=== PATIENT | male | born 1980 | race Caucasian/White ===

== ENCOUNTER 2017-06-26 15:49 | Inpatient (IN) | payer MEDICAID, SELFPAY ==
[2017-06-26 15:50] VITALS: BP 133/80; PULSE 97; RESP 18; TEMP 37.1; O2SAT 97; BMI 19.4
--- NOTE | 2017-06-26 16:14 | ED.VISSUMM ---
- ER Visit Summary Date of Service: 06/26/17 Chief Complaint: [Swelling to left forearm and clearance for admission to [facility]] History of Present Illness: The patient is a 36 M [was evaluated by [facility] staff and meets criteria for admission to detox from heroin. Patient was brought to the emergency department when it was noted that he had a soft tissue swelling to the left antecubital area of his forearm. Patient states he noticed the redness and swelling that started about 2-3 days ago. Patient denies any fevers. Patient has had similar lesions in the past that resolved on her own.] Physical Examination: [HEENT-PERRLA, EOMI. Cranial nerves II through XII grossly intact. TMs clear. Mucous membranes moist. No adenopathy. Cardiovascular-regular rate and rhythm without murmur or ectopy Lungs-clear to auscultation, chest wall stable without crepitus or subcu emphysema Abdomen-normoactive bowel sounds, soft, nontender, no rebound or rigidity, no peritoneal signs. Extremities-intact ?4, normal range of motion, normal pulses, atraumatic]. Left forearm-patient has a 3 cm soft tissue swelling to the medial aspect of the antecubital region. The area slightly tender to palpation and slightly firm. No significant fluctuance noted. There is some surrounding erythema. Patient neurovascular intact distally. Test Results: [None indicated] Emergency Department Course and Treatment: [Patient was offered incision and drainage of suspected early abscess which patient agreed. Wound sterilely draped and prepped. Wound cleansed with Betadine. Wound anesthetized with 1% lidocaine total of 1 cc. Using an 11 blade a 1.5 cm incision was made. Only small amount of blood returned and no significant purulence. I used curved hemostats to undermine the soft tissues and again no purulent return. Clean dressing was applied.] Treatment Plan: [Patient was started on Keflex and Bactrim] Disposition: [Discharged home in stable condition. Patient will actually be admitted to [facility] for detox.] Impression: [Left forearm soft tissue abscess with cellulitis] This note was generated with [employer] dictation software. It may contain incorrect words, spelling, and punctuation that were not noted in review of the chart prior to signing ED Disposition - Plan for ED Patient: Chief Complaint: Subst Abuse Referrals: Care Physician,No Primary [Primary Care Provider] -
--- NOTE | 2017-06-26 16:17 | ED.DCSUM_ITS ---
- ER Visit Summary Date of Service: 06/26/17 Chief Complaint: [Swelling to left forearm and clearance for admission to [facility]] History of Present Illness: The patient is a 36 M [was evaluated by [facility] staff and meets criteria for admission to detox from heroin. Patient was brought to the emergency department when it was noted that he had a soft tissue swelling to the left antecubital area of his forearm. Patient states he noticed the redness and swelling that started about 2-3 days ago. Patient denies any fevers. Patient has had similar lesions in the past that resolved on her own.] Physical Examination: [HEENT-PERRLA, EOMI. Cranial nerves II through XII grossly intact. TMs clear. Mucous membranes moist. No adenopathy. Cardiovascular-regular rate and rhythm without murmur or ectopy Lungs-clear to auscultation, chest wall stable without crepitus or subcu emphysema Abdomen-normoactive bowel sounds, soft, nontender, no rebound or rigidity, no peritoneal signs. Extremities-intact ?4, normal range of motion, normal pulses, atraumatic]. Left forearm-patient has a 3 cm soft tissue swelling to the medial aspect of the antecubital region. The area slightly tender to palpation and slightly firm. No significant fluctuance noted. There is some surrounding erythema. Patient neurovascular intact distally. Test Results: [None indicated] Emergency Department Course and Treatment: [Patient was offered incision and drainage of suspected early abscess which patient agreed. Wound sterilely draped and prepped. Wound cleansed with Betadine. Wound anesthetized with 1% lidocaine total of 1 cc. Using an 11 blade a 1.5 cm incision was made. Only small amount of blood returned and no significant purulence. I used curved hemostats to undermine the soft tissues and again no purulent return. Clean dressing was applied.] Treatment Plan: [Patient was started on Keflex and Bactrim] Disposition: [Discharged home in stable condition. Patient will actually be admitted to [facility] for detox.] Impression: [Left forearm soft tissue abscess with cellulitis] This note was generated with [employer] dictation software. It may contain incorrect words, spelling, and punctuation that were not noted in review of the chart prior to signing ED Disposition - Plan for ED Patient: Chief Complaint: Subst Abuse Referrals: Care Physician,No Primary [Primary Care Provider] -
--- NOTE | 2017-06-26 16:17 | ED.DEP ---
ED Disposition - Plan for ED Patient: Chief Complaint: Subst Abuse Instructions: ED Narcotic Abuse, ED Abscess IandD Prescriptions: Cephalexin [Keflex] 500 mg PO Q6 #40 cap Smz/Tmp Ds [Bactrim Ds] 2 tab PO BID #40 tab Referrals: Care Physician,No Primary [Primary Care Provider] - Stephanie Noriega DO [STAFF PHYSICIAN] - 5-7 Days
[2017-06-26 16:37] VITALS: BMI 19.5
[2017-06-26] MEDS: Smz/Tmp Ds Tablet 2 TABLET PO ×2 (16:47→22:50)
[2017-06-26] MEDS: Cephalexin 250 MG Capsule 500 MG PO (16:47)
--- NOTE | 2017-06-26 17:03 | HP.PCM_ITS ---
Problem List (1) ETOH abuse Status: Chronic (2) Cellulitis of left upper extremity Status: Acute (3) Acute opioid withdrawal Status: Acute (4) Hep C w/o coma, chronic Status: Chronic (5) Heroin dependence Status: Chronic (6) Tobacco dependence Status: Chronic History of Present Illness Date of Admission: 06/26/17 Chief Complaint: Acute Opiate Withdrawal, EtOH Abuse, LUE cellulitis The patient is a 36 y/o M w/ PMHx: Chronic Hepatitis C, IVDA w/ Heroine (1/2-1 gm daily average, last 06/26/17 2 AM), Crack Cocaine Usage (Smoke q day, last ~ 3 days prior), Tobacco Use (1 ppd), Occasional Cannabis Usage, EtOH Abuse (At least 3-6 drinks per day, sometimes beer, sometimes liquor, i.e. whiskey he notes as example) who presents to the [facility] on 06/26/17 w/ noted opiate and EtOH withdrawal onset starting 06/26/17 late AM following last dose heroine 2 AM, last EtOH evening prior with abdominal pain/cramping, generalized body aches and pains, rhinorrhea, piloerection, fatigue, restless leg, sweating, yawning, tremors. Patient interested in attaining clean status. He notes having been through the program prior. Upon initial presentation to [facility] patient with noted LUE antecubital fossa erythema which he noted started on day of presentation therefore he was initially transitioned to the ED for evaluation. I+D attempted given appearance but only indurated with no drainage despite attempt. Patient placed on bactrim and keflex and Hospitalist contacted for [facility] admission. Past Medical History Past Medical History (Chronic Problems): Chronic Problems ETOH abuse (Chronic) Hep C w/o coma, chronic (Chronic) Tobacco dependence (Chronic) Heroin dependence (Chronic) Allergies No Known Allergies Allergy (Verified 06/26/17 15:54) Home Medications: Ambulatory Orders Medication Instructions Recorded Cephalexin [Keflex] 500 mg PO Q6 #40 cap 06/26/17 Smz/Tmp Ds [Bactrim Ds] 2 tab PO BID #40 tab 06/26/17 Surgical History: no surgical history Psychiatric History: No pertinent psych hx Lives: Roommate - Notes his roommate does not use drugs. Smoking Status: Current every day smoker - 1 ppd. Tobacco Use: Cigarettes Alcohol: Heavy - At least 3-6 drinks per day, sometimes beer, sometimes liquor, i.e. whiskey he notes as example. Drugs: Cocaine - Crack Cocaine Usage (Smoke q day, last ~ 3 days prior), Heroin - 1/2-1 gm daily average, last 06/26/17 2 AM. - *Family History Maternal History Items: No pertinent history Paternal History Items: No pertinent history Review of Systems Constitutional: Reports: Anorexia, Chills, Malaise, Weakness, Fatigue. Denies: Fever, Weight Change HEENT: Reports: Head Aches, Nasal Congestion, Post Nasal Drip, Sinus Congestion , Sinus Drainage Cardiovascular: Denies: Chest Pain, Palpitations Respiratory: Denies: Cough, Shortness of breath at rest, Sputum production Gastrointestinal: Reports: Abdominal Pain, Nausea. Denies: Vomiting Genitourinary: Denies: Dysuria Musculoskeletal: Reports: Joint Pain, Muscle pain. Denies: Joint Tenderness Skin: Reports: Skin Changes, Wounds. Denies: Rash Neurological: Denies: Numbness, Tingling, Focal weakness Psychiatric: Denies: Anxiety, Depression, Homicidal Ideations, Suicidal Ideations Hematologic/ Lymphatic: Denies: Easy Bruising, Easy Bleeding VTE Information - Inpt Only VTE Present on Admission: No VTE Mechan Device Prophylaxis: Knee High JOHNNIE Hose VTE Pharm Prophylaxis ordered?: Yes Patient Problems: Active and Suspected Problems Cellulitis of left upper extremity (Acute) Subjective: Seated upright in the ED bed, notes ongoing withdrawal sxs, notes no marked pain to LUE s/p I+D attempt. Objective: Physical Examination: General: awake, alert, oriented x 3 and cooperative, seated upright in the bed in no apparent distress, mildly anxious. Skin: normal color, turgor, no icterus, cyanosis except LUE w/ s/p I+D incision , no drainage, mildly indurated, 2-3 cm circular region around incision erythematous. HEENT: AT/NC, EOMI, PERRLA, dry MM, no carotid bruits or JVD noted, rhinorrhea noted. Lungs: CTA bilaterally, moderate effort, moderate decrease BL bases, no rales, ronchi or wheezing. Heart: Mildly tachycardic with regular rhythm; no gallop, rub audible. Abdomen: soft, generalized mild discomfort to palpation,NTTP, ND, hyperactive BS , + HM. Extremities: no cyanosis, clubbing, see skin. Neurological: patient awake, alert, oriented x 3; cognitive function intact; pupils equally reactive to light and accomodation; cranial nerves II-XII grossly normal, moving all 4 extremities, no focal deficits, strength mildly to moderately globally decreased secondary to acute presentation. Psychiatric: affect appears mildly anxious, no acute evidence of depressive feelings. - Physical Exam Vital Signs Temp Pulse Resp BP Pulse Ox 98.7 F 97 18 133/80 H 97 06/26/17 15:50 06/26/17 15:50 06/26/17 15:50 06/26/17 15:50 06/26/17 15:50 Oxygen Delivery Method Room Air Weight: 143 lb 8.335 oz Body Mass Index (BMI) 19.4 Assessment/Plan Active and Suspected Problems Cellulitis of left upper extremity (Acute) The patient is a 36 y/o M w/ PMHx: Chronic Hepatitis C, IVDA w/ Heroine, Crack Cocaine Usage, Tobacco Use , Occasional Cannabis Usage, EtOH Abuse who presents to the [facility] at [facility] on 06/26/17 w/ acute opiate and EtOH withdrawal. (1) Acute Opiate and EtOH Withdrawal: Will admit to [facility], obtain routine labs including CBC, CMP, urine for drug screen, urinalysis, serum lipase, routine EKG and will initiate and continue on [facility] protocol with tapering course of Librium, as needed Seroquel, Librium, Sinemet, Catapres, Bentyl, Vistaril, IV fluids, IV antiemetics, Tylenol as needed for pain. Once patient clinically improved and completion of taper nearing will plan [facility] assistance for transition to next level of rehabilitation care. Mag, phos pending. Maintain on CIWA protocol. (2) LUE Extremity Cellulitis: Will maintain on keflex and bactrim regimen, I+D attempt in the ED without any drainage, pending admission labs and plan repeat CBC in AM, continue affected extremity elevation above heart when seated and in bed, monitor erythema outline with VS checks. Wound RN consulted, dressing changes. (3) Polysubstance Abuse, IVDA Hx, History of Hepatitis C, Chronic: Patient currently not candidate for hep C treatment currently as needs to be clean, sober x 6 months, documented attendance NA or AA meetings, counseling and ongoing negative drug screens. Once appropriate GI, ID to initiate. HIV, hepatitis panel to assess for co-infection pending. Encouraged PCP establishment and follow-up. (4) Hx Abnormal LFTs: 11/25/17 AST/ALT 49/84, pending CMP upon admission, if notable will consider liver US. As noted hepatitis panel pending. (5) Tobacco Abuse: Encouraged cessation, inpatient consultation per RT, NR if desired. (6) DVT Prophylaxis: Ambulation, low risk. Code Visit Inpatient E&M: 13124 Init Hosp L3
[2017-06-26 17:27] VITALS: BP 111/67; PULSE 78; RESP 16; O2SAT 100
[2017-06-26 18:20] VITALS: BMI 19.4
--- NOTE | 2017-06-26 18:28 | EKG12_ITS ---
Test Reason : ROUTINE Blood Pressure : / mmHG Vent. Rate : 066 BPM Atrial Rate : 066 BPM P-R Int : 148 ms QRS Dur : 094 ms QT Int : 400 ms P-R-T Axes : 072 073 073 degrees QTc Int : 419 ms Normal sinus rhythm Normal ECG When compared with ECG of 26-NOV-2016 10:07, No significant change was found Confirmed by NADINE SUMNER, MARLEN ([id number]), editor magazine CHIDI DELGADO ([id number]) on 07/08/2017 9:30:47 AM Referred By: KATHY Confirmed By:MARLEN MCCOY MD
[2017-06-26 18:30] VITALS: BP 116/68; PULSE 68; RESP 16; TEMP 37; O2SAT 100
[2017-06-26 18:41] VITALS: BP 111/67; PULSE 78; RESP 16; TEMP 37.1
[2017-06-26 19:50] LABS: Absolute Lymphocyte Count 1.68 X10^3/ul (0.83-4.51); Absolute Neutrophil Count 3.5 X10^3/uL (2.0-7.7); Basophil# 0.02 X10^3/uL; Basophil% 0.4 % (0-1); Eosinophil# 0.06 X10^3/uL; Eosinophils% 1.1 % (0-5); Hematocrit 36.2 % (40-54); Hemoglobin 12.4 g/dl (13.0-16.5); Lymphocyte # 1.68 X10^3/ul (4.0); Lymphocyte % 30.4 % (19-41); Mean Corp Hgb Conc 34.3 g/gl (32-36); Mean Corpuscular Hgb 30.2 pg (27.0-32.0); Mean Corpuscular Volume 88.3 fL (80-94); Mean Platelet Vol. 10.3 fl (6.2-12.0); Monocyte# 0.24 X10^3/uL; Monocyte% 4.3 % (0-10); Neutrophil # 3.52 X10^3/uL (2.7-7.7); Neutrophil % 63.8 % (47-70); Platelet Count 175 K/mm3 (150-450); RBC Distribution Width CV 12.1 % (11.6-14.6); RBC Distribution Width SD 38.7 fl (35.1-43.9); White Blood Count 5.5 K/mm3 (4.4-11.0)
[2017-06-26 19:53] LABS: POSITIVE COUNT NO; POSITIVE DIFFERENTIAL NO; POSITIVE MORPHOLOGY NO
[2017-06-26] MEDS: Pramipexole Di-HCl 0.25 MG Tablet PO (19:58)
[2017-06-26] MEDS: chlordiazePOXIDE 25 MG Capsule 50 MG PO (19:58)
[2017-06-26] MEDS: cloNIDine HCl 0.1 MG Tablet PO (19:58)
[2017-06-26] MEDS: Cephalexin 500 MG Capsule PO (19:58)
[2017-06-26] MEDS: Dicyclomine 10 MG Capsule 20 MG PO (19:58)
[2017-06-26 20:11] LABS: Alcohol, Blood (Medical)-Serum < 3.0 mg/dL
[2017-06-26 20:16] LABS: AST(SGOT) 91 U/L (15-37); Alanine Aminotransfer ALT/SGPT 158 U/L (16-61); Albumin, Serum 3.6 g/dL (3.2-5.0); Alkaline Phosphatase 89 U/L (45-117); Anion Gap 7 (5-15); BUN 7 mg/dL (7-18); BUN/Creat Ratio 8.8 RATIO (10-20); Calcium,Total 8.6 mg/dL (8.5-10.1); Chloride 104 mmol/L (98-107); EST Glomerular Filtration Rate 116 mL/min (>60); Est Glom Filt Rate - Afr Amer 140 mL/min (>60); Estimated Creatinine Clearance 116.41 ml/min; Globulin 3.7 g/dL (2.2-4.2); Glucose 86 mg/dL (74-106); Lipase 131 U/L (73-393); Phosphorus 3.5 mg/dL (2.5-4.9); Potassium 3.8 mmol/L (3.5-5.1); Protein, Total 7.3 g/dL (6.4-8.2); Sodium Level 141 mmol/L (136-145)
[2017-06-26 21:18] LABS: HIV - WCH Non-Reactive (Nonreactive)
[2017-06-26 22:44] VITALS: BP 93/57; PULSE 63; RESP 16; TEMP 36.7
[2017-06-26] MEDS: traZODone 50 MG Tablet PO (22:50)
[2017-06-26] MEDS: Famotidine 20 MG Tablet PO (22:50)
[2017-06-26] MEDS: Methocarbamol 750 MG Tablet PO (22:50)
[2017-06-26] MEDS: QUEtiapine 25 MG Tablet PO (22:50)
[2017-06-27] VITALS (9 sets, daily range): BP systolic 89–114; BP diastolic 49–75; PULSE 55–80; RESP 16–18; TEMP 36.4–36.9; O2SAT 96–100
[2017-06-27] MEDS: Cephalexin 500 MG Capsule PO ×2 (01:44→06:00)
[2017-06-27] MEDS: chlordiazePOXIDE 25 MG Capsule 50 MG PO ×3 (01:45→20:05)
[2017-06-27] MEDS: hydrOXYzine PAM 25 MG Capsule 50 MG PO (03:28)
[2017-06-27 06:00] LABS: Absolute Lymphocyte Count 2.67 X10^3/ul (0.83-4.51); Absolute Neutrophil Count 2.3 X10^3/uL (2.0-7.7); Basophil# 0.03 X10^3/uL; Basophil% 0.5 % (0-1); Eosinophil# 0.18 X10^3/uL; Eosinophils% 3.2 % (0-5); Hematocrit 35.4 % (40-54); Hemoglobin 12.5 g/dl (13.0-16.5); Lymphocyte # 2.67 X10^3/ul (4.0); Lymphocyte % 47.9 % (19-41); Mean Corp Hgb Conc 35.3 g/gl (32-36); Mean Corpuscular Volume 87.8 fL (80-94); Mean Platelet Vol. 10.5 fl (6.2-12.0); Monocyte# 0.43 X10^3/uL; Monocyte% 7.7 % (0-10); Neutrophil # 2.26 X10^3/uL (2.7-7.7); Neutrophil % 40.7 % (47-70); Platelet Count 189 K/mm3 (150-450); RBC Distribution Width CV 11.9 % (11.6-14.6); RBC Distribution Width SD 37.7 fl (35.1-43.9); Red Blood Count 4.03 M/mm3 (4.6-6.2); White Blood Count 5.6 K/mm3 (4.4-11.0)
[2017-06-27] MEDS: Dicyclomine 10 MG Capsule 20 MG PO ×3 (06:00→20:05)
[2017-06-27] MEDS: cloNIDine HCl 0.1 MG Tablet PO ×2 (06:00→20:05)
[2017-06-27] MEDS: QUEtiapine 25 MG Tablet PO (06:00)
[2017-06-27] MEDS: Methocarbamol 750 MG Tablet PO ×2 (06:00→12:01)
[2017-06-27] MEDS: Ibuprofen 600 MG Tablet PO ×2 (06:00→16:20)
[2017-06-27 06:11] LABS: POSITIVE COUNT NO; POSITIVE DIFFERENTIAL NO; POSITIVE MORPHOLOGY NO
[2017-06-27] MEDS: Smz/Tmp Ds Tablet 2 TABLET PO ×2 (08:20→22:53)
[2017-06-27] MEDS: Folic Acid 1 MG Tablet PO (08:21)
[2017-06-27] MEDS: Multivitamins,Ther W-Minerals Tablet 1 TABLET PO (08:21)
[2017-06-27] MEDS: Thiamine Hydrochloride 100 MG Tablet PO (08:21)
[2017-06-27] MEDS: Famotidine 20 MG Tablet PO ×2 (08:21→22:54)
[2017-06-27] MEDS: Pramipexole Di-HCl 0.25 MG Tablet PO (08:32)
[2017-06-27] MEDS: Buprenorphine HCl 2 MG TAB.SUBL SL ×2 (08:33→16:20)
--- NOTE | 2017-06-27 09:04 | PCM.PROGNOTE ---
Patient Problems: Active and Suspected Problems Cellulitis of left upper extremity (Acute) Subjective: Patient seen and examined. Complains of nausea without emesis, abdominal cramping, anxiety and restlessness. Denies other complaints. - Physical Exam General: Alert, Oriented x3, Cooperative, No apparent distress HEENT: Atraumatic, PERRLA, EOMI, Normocephalic Oral: Moist Mucosa Neck: Supple, No JVD, Negative Carotid Bruits Lungs: Clear to auscultation, Diminished Cardiovascular: Regular rate, Regular Rhythm, Normal S1, Normal S2, No murmurs Abdomen: Bowel Sounds Present, Soft, Non Tender, Non-Distended Extremities: No clubbing, No cyanosis, No edema, Capillary Refill Less than 3 Seconds Skin: - - LUE incision status post I&D Musculoskeletal: No Tenderness to Palpation of Joints or Extremities Neurological: Cranial nerves II-XII grossly intact, Neuro grossly intact Psych/Mental Status: Normal Affect, Appropriate Vital Signs Temp Pulse Resp BP Pulse Ox 97.5 F L 60 18 89/49 L 100 06/27/17 08:39 06/27/17 08:39 06/27/17 08:39 06/27/17 08:39 06/27/17 08:19 Oxygen Delivery Method Room Air Weight: 65.1 kg Body Mass Index (BMI) 19.4 Laboratory Tests Past 24 Hrs 06/26/17 06/26/17 06/26/17 19:28 19:28 19:28 WBC 5.5 RBC 4.10 L Hgb 12.4 L Hct 36.2 L MCV 88.3 MCH 30.2 MCHC 34.3 RDW 12.1 RDW Differential 38.7 Plt Count 175 MPV 10.3 Immature Gran % (Auto) 0.000 Neut % (Auto) 63.8 Lymph % (Auto) 30.4 [place] % (Auto) 4.3 Eos % (Auto) 1.1 Baso % (Auto) 0.4 Absolute Neuts (auto) 3.5 Absolute Lymphs (auto) 1.68 Total Counted Not Reportable PT 13.0 INR 1.0 Sodium 141 Potassium 3.8 Chloride 104 Carbon Dioxide 30.0 Anion Gap 7 BUN 7 Creatinine 0.80 Estim Creat Clear Calc 116.41 Est GFR (MDRD) Af Amer 140 Est GFR (MDRD) Non-Af 116 BUN/Creatinine Ratio 8.8 L Glucose 86 Calcium 8.6 Phosphorus 3.5 Magnesium 2.0 Total Bilirubin 0.30 AST 91 H ALT 158 H Alkaline Phosphatase 89 Total Protein 7.3 Albumin 3.6 Globulin 3.7 Albumin/Globulin Ratio 1.0 Lipase 131 Ethyl Alcohol Hepatitis A IgM Ab Hepatitis A Ab Total Hep Bs Antigen Hep B Core Total Ab Hep B Core IgM Ab Hepatitis C Comment HIV 1&2 Antibody 06/26/17 06/26/17 06/26/17 19:28 19:28 19:28 WBC RBC Hgb Hct MCV MCH MCHC RDW RDW Differential Plt Count MPV Immature Gran % (Auto) Neut % (Auto) Lymph % (Auto) Independence % (Auto) Eos % (Auto) Baso % (Auto) Absolute Neuts (auto) Absolute Lymphs (auto) Total Counted PT INR Sodium Potassium Chloride Carbon Dioxide Anion Gap BUN Creatinine Estim Creat Clear Calc Est GFR (MDRD) Af Amer Est GFR (MDRD) Non-Af BUN/Creatinine Ratio Glucose Calcium Phosphorus Magnesium Total Bilirubin AST ALT Alkaline Phosphatase Total Protein Albumin Globulin Albumin/Globulin Ratio Lipase Ethyl Alcohol < 3.0 Hepatitis A IgM Ab Pending Hepatitis A Ab Total Pending Hep Bs Antigen Pending Hep B Core Total Ab Pending Hep B Core IgM Ab Pending Hepatitis C Comment Pending HIV 1&2 Antibody Non-Reactive 06/27/17 05:37 WBC 5.6 RBC 4.03 L Hgb 12.5 L Hct 35.4 L MCV 87.8 MCH 31.0 MCHC 35.3 RDW 11.9 RDW Differential 37.7 Plt Count 189 MPV 10.5 Immature Gran % (Auto) 0.000 Neut % (Auto) 40.7 L Lymph % (Auto) 47.9 H [place] % (Auto) 7.7 Eos % (Auto) 3.2 Baso % (Auto) 0.5 Absolute Neuts (auto) 2.3 Absolute Lymphs (auto) 2.67 Total Counted Not Reportable PT INR Sodium Potassium Chloride Carbon Dioxide Anion Gap BUN Creatinine Estim Creat Clear Calc Est GFR (MDRD) Af Amer Est GFR (MDRD) Non-Af BUN/Creatinine Ratio Glucose Calcium Phosphorus Magnesium Total Bilirubin AST ALT Alkaline Phosphatase Total Protein Albumin Globulin Albumin/Globulin Ratio Lipase Ethyl Alcohol Hepatitis A IgM Ab Hepatitis A Ab Total Hep Bs Antigen Hep B Core Total Ab Hep B Core IgM Ab Hepatitis C Comment HIV 1&2 Antibody Medical Necessity - Tobacco Use Smoking Status: Current every day smoker Tobacco Use: Cigarettes Assessment/Plan Active and Suspected Problems Cellulitis of left upper extremity (Acute) 1. Acute opioid withdrawal, acute alcohol withdrawal-Continue medical stabilization per protocol. Patient complains of abdominal cramping, nausea, anxiety/restlessness. Continue as needed IV Zofran and as needed Bentyl. Continue to monitor. 2. Cellulitis left upper extremity-I&D attempted in the emergency room without drainage. No leukocytosis. Afebrile. Continue dressing changes. Continue Bactrim. 3. History of hepatitis C, chronic-hepatitis panel pending. Continue outpatient follow-up. 4. Abnormal LFTs-LFTs were elevated October 2017, AST/ALT 49/84. 91/158 this admission. Trend. Encourage outpatient follow-up. 5. Tobacco dependence-encourage smoking cessation. DVT prophylaxis-not indicated due to low risk. This patient was seen by MARA aKtz under the supervision of Dr. Claire.
--- NOTE | 2017-06-27 10:44 | NURSING ---
wound photo: left antecubital
[2017-06-27] MEDS: Ondansetron ODT 4 MG Tablet PO (11:40)
[2017-06-28] VITALS (9 sets, daily range): BP systolic 85–99; BP diastolic 49–59; PULSE 52–74; RESP 16–18; TEMP 36.4–36.8; O2SAT 99–100
[2017-06-28] MEDS: Buprenorphine HCl 2 MG TAB.SUBL SL ×3 (00:41→15:38)
[2017-06-28 04:17] LABS: HEPATITIS B SURFACE AG Negative (Negative); Hepatitis A AB, Total Positive (Negative); Hepatitis A IgM Antibody Negative (Negative); Hepatitis B Core AB IgM Negative (Negative); Hepatitis B Core Ab Total Negative (Negative)
[2017-06-28 07:43] LABS: AST(SGOT) 89 U/L (15-37); Alanine Aminotransfer ALT/SGPT 141 U/L (16-61); Albumin, Serum 3.1 g/dL (3.2-5.0); Alkaline Phosphatase 73 U/L (45-117); Globulin 3.4 g/dL (2.2-4.2); Protein, Total 6.5 g/dL (6.4-8.2)
[2017-06-28] MEDS: Multivitamins,Ther W-Minerals Tablet 1 TABLET PO (08:58)
[2017-06-28] MEDS: Folic Acid 1 MG Tablet PO (08:58)
[2017-06-28] MEDS: Thiamine Hydrochloride 100 MG Tablet PO (08:58)
[2017-06-28] MEDS: Smz/Tmp Ds Tablet 2 TABLET PO ×2 (08:59→22:39)
[2017-06-28] MEDS: chlordiazePOXIDE 25 MG Capsule 50 MG PO ×2 (09:02→19:45)
--- NOTE | 2017-06-28 09:28 | PCM.PROGNOTE ---
Patient Problems: Active and Suspected Problems Cellulitis of left upper extremity (Acute) Subjective: Patient seen and examined. States he feels improved today. Denies further emesis, abdominal cramping. Complains of continued anxiety. States he is deciding on whether to do extensive inpatient treatment. Denies other complaints. - Physical Exam General: Alert, Oriented x3, Cooperative, No apparent distress HEENT: Atraumatic, PERRLA, EOMI, Normocephalic Neck: Supple, No JVD, Negative Carotid Bruits Lungs: Clear to auscultation, Diminished Cardiovascular: Regular rate, Regular Rhythm, Normal S1, Normal S2, No murmurs Abdomen: Bowel Sounds Present, Soft, Non Tender, Non-Distended Extremities: No clubbing, No cyanosis, No edema, Capillary Refill Less than 3 Seconds Skin: - - LUE incision status post I&D Musculoskeletal: No Tenderness to Palpation of Joints or Extremities Neurological: Cranial nerves II-XII grossly intact, Neuro grossly intact Psych/Mental Status: Normal Affect, Appropriate Vital Signs Temp Pulse Resp BP Pulse Ox 97.9 F 56 L 16 95/52 L 100 06/28/17 08:54 06/28/17 09:04 06/28/17 08:54 06/28/17 08:54 06/28/17 08:54 Oxygen Delivery Method Room Air Weight: 65.1 kg Body Mass Index (BMI) 19.4 Intake and Output for Last 24 Hours 06/26/17 06/27/17 06/28/17 23:59 23:59 23:59 Intake Total 720 / 720 600 / 600 Balance 720 / 720 600 / 600 Laboratory Tests Past 24 Hrs 06/28/17 06:40 Total Bilirubin 0.50 Direct Bilirubin 0.10 AST 89 H ALT 141 H Alkaline Phosphatase 73 Total Protein 6.5 Albumin 3.1 L Globulin 3.4 Medical Necessity - Tobacco Use Smoking Status: Current every day smoker Tobacco Use: Cigarettes Assessment/Plan Active and Suspected Problems Cellulitis of left upper extremity (Acute) 1. Acute opioid withdrawal, acute alcohol withdrawal-Continue medical stabilization per protocol. Patient is stable at this time. Plan for discharge tomorrow pending patient decision for inpatient rehab. 2. Cellulitis left upper extremity-I&D attempted in the emergency room without drainage. No leukocytosis. Afebrile. Continue dressing changes. Continue Bactrim. 3. History of hepatitis C, chronic-hepatitis panel pending. Continue outpatient follow-up. 4. Alcoholic hepatitis-chronic elevated LFTs. Repeat LFTs this admission are slightly decreased. Recommend further outpatient follow-up. 5. Tobacco dependence-encourage smoking cessation. DVT prophylaxis-not indicated due to low risk. This patient was seen by MARA Katz under the supervision of Dr. Claire.
[2017-06-28] MEDS: Famotidine 20 MG Tablet PO ×2 (10:29→22:45)
[2017-06-28] MEDS: Pramipexole Di-HCl 0.25 MG Tablet PO (13:46)
[2017-06-28] MEDS: Methocarbamol 750 MG Tablet PO ×2 (13:46→19:46)
[2017-06-28] MEDS: Dicyclomine 10 MG Capsule 20 MG PO (19:44)
[2017-06-28] MEDS: Ondansetron ODT 4 MG Tablet PO (19:44)
[2017-06-28] MEDS: Ibuprofen 600 MG Tablet PO (22:38)
[2017-06-29] MEDS: Buprenorphine HCl 2 MG TAB.SUBL SL ×2 (00:36→11:59)
[2017-06-29 01:54] VITALS: BP 86/45; PULSE 57; RESP 16; TEMP 36.6
[2017-06-29] MEDS: Pramipexole Di-HCl 0.25 MG Tablet PO (02:03)
[2017-06-29] MEDS: Methocarbamol 750 MG Tablet PO ×2 (02:03→12:02)
[2017-06-29] MEDS: Ondansetron ODT 4 MG Tablet PO (02:04)
[2017-06-29] MEDS: chlordiazePOXIDE 25 MG Capsule 50 MG PO ×2 (02:04→19:07)
[2017-06-29] MEDS: Dicyclomine 10 MG Capsule 20 MG PO (02:04)
[2017-06-29 07:30] VITALS: BP 85/54; PULSE 58; RESP 16; TEMP 36.7
[2017-06-29 07:31] VITALS: RESP 16
[2017-06-29] MEDS: Multivitamins,Ther W-Minerals Tablet 1 TABLET PO (07:45)
[2017-06-29] MEDS: Thiamine Hydrochloride 100 MG Tablet PO (07:45)
[2017-06-29] MEDS: Folic Acid 1 MG Tablet PO (07:45)
[2017-06-29] MEDS: Smz/Tmp Ds Tablet 2 TABLET PO ×2 (10:00→21:26)
[2017-06-29] MEDS: Famotidine 20 MG Tablet PO ×2 (10:00→21:26)
[2017-06-29 11:12] LABS: Hep B Surface Antibodies Reactive (.)
[2017-06-29 11:15] LABS: Hepatitis C Ab >11.0 s/co ratio (0.0-0.9)
[2017-06-29] MEDS: Ibuprofen 600 MG Tablet PO ×2 (12:02→20:08)
--- NOTE | 2017-06-29 12:10 | PCM.PROGNOTE ---
Patient Problems: Active and Suspected Problems Cellulitis of left upper extremity (Acute) Subjective: Patient seen and examined. States he feels well today. Denies complaints. Patient states he is being picked up around 8:00 tomorrow morning to go to inpatient residential treatment facility. - Physical Exam General: Alert, Oriented x3, Cooperative HEENT: Atraumatic, PERRLA, EOMI, Normocephalic Neck: Supple, No JVD, Negative Carotid Bruits Lungs: Clear to auscultation, Normal air movement Cardiovascular: Regular rate, Regular Rhythm, Normal S1, Normal S2, No murmurs Abdomen: Bowel Sounds Present, Soft, Non Tender, Non-Distended Extremities: No clubbing, No cyanosis, No edema, Capillary Refill Less than 3 Seconds Skin: No rashes, No breakdown, - - LUE incision status post I&D Musculoskeletal: No Tenderness to Palpation of Joints or Extremities Neurological: Cranial nerves II-XII grossly intact, Neuro grossly intact Psych/Mental Status: Normal Affect, Appropriate Vital Signs Temp Pulse Resp BP Pulse Ox 98.0 F 58 L 16 85/54 L 99 06/29/17 07:30 06/29/17 07:30 06/29/17 07:31 06/29/17 07:30 06/28/17 17:42 Oxygen Delivery Method Room Air Weight: 65.1 kg Body Mass Index (BMI) 19.4 Intake and Output for Last 24 Hours 06/27/17 06/28/17 06/29/17 23:59 23:59 23:59 Intake Total 720 / 720 600 / 600 300 / 300 Balance 720 / 720 600 / 600 300 / 300 Laboratory Tests Past 24 Hrs 06/26/17 19:28 Hepatitis A IgM Ab Negative Hepatitis A Ab Total Positive H Hep Bs Antigen Negative Hep B Core Total Ab Negative Hep B Core IgM Ab Negative Hepatitis C Ab Confirm >11.0 H Medical Necessity - Tobacco Use Smoking Status: Current every day smoker Tobacco Use: Cigarettes Assessment/Plan Active and Suspected Problems Cellulitis of left upper extremity (Acute) 1. Acute opioid withdrawal, acute alcohol withdrawal-Continue medical stabilization per protocol. Patient is stable at this time. Plan for discharge tomorrow morning to inpatient rehab facility. 2. Cellulitis left upper extremity-I&D attempted in the emergency room without drainage. No leukocytosis. Afebrile. Continue dressing changes. Continue Bactrim. 3. History of hepatitis C, chronic-hepatitis panel pending. Continue outpatient follow-up. 4. Alcoholic hepatitis-chronic elevated LFTs. Repeat LFTs this admission are slightly decreased. Recommend further outpatient follow-up. 5. Tobacco dependence-encourage smoking cessation. DVT prophylaxis-not indicated due to low risk. This patient was seen by MARA Katz under the supervision of Dr. Claire.
[2017-06-29 13:52] VITALS: BP 97/60; PULSE 65; RESP 16; TEMP 36.7
[2017-06-29 17:06] VITALS: BP 105/61; PULSE 68; RESP 16; TEMP 36.8; O2SAT 100
[2017-06-29] MEDS: cloNIDine HCl 0.1 MG Tablet PO (17:11)
[2017-06-29 19:32] VITALS: BP 92/52; PULSE 62; RESP 16; TEMP 36.7
[2017-06-29] MEDS: Nicotine Polacrilex 2 MG GUM PO (20:19)
[2017-06-30] MEDS: Buprenorphine HCl 2 MG TAB.SUBL SL (00:25)
[2017-06-30 01:10] VITALS: BP 95/53; PULSE 56; RESP 18; TEMP 36.6
[2017-06-30] MEDS: chlordiazePOXIDE 25 MG Capsule 50 MG PO (01:14)
[2017-06-30] MEDS: Thiamine Hydrochloride 100 MG Tablet PO (08:02)
[2017-06-30] MEDS: Multivitamins,Ther W-Minerals Tablet 1 TABLET PO (08:02)
[2017-06-30] MEDS: Folic Acid 1 MG Tablet PO (08:02)
[2017-06-30 08:03] VITALS: BP 91/58; PULSE 63; RESP 16; TEMP 36.6; O2SAT 100
--- NOTE | 2017-06-30 08:35 | PCM.DC ---
- Discharge Diagnoses Current Active Problems: Current Active and Chronic Problems ETOH abuse (Chronic) Cellulitis of left upper extremity (Acute) Reason(s) for Visit for Discharge Instructions: Opioid, alcohol withdrawal You will use the following diet at home:: Regular Your food should be the consistency of: Regular Your liquids should be the consistency of: Regular/Thin Discharge Activity: Return to Normal Activity Instructions: ED Abscess IandD, ED Narcotic Abuse Additional Instructions: You are strongly advised to avoid using opiates and alcohol. Continue with your plan for outpatient treatment. You should continue the 2 antibiotics prescribed - Keflex and Bactrim. You will need to change the dressing with dry dressings daily. Follow-up with your primary doctor within 2 weeks. Allergies/Adverse Reactions: Allergies No Known Allergies Allergy (Verified 06/26/17 15:54) Medications to take at Discharge Smz/Tmp Ds [Bactrim Ds] 1 tablet PO BID #5 tablet 06/30/17 The following prescriptions were given: Cephalexin [Keflex] 500 mg PO Q6 #40 cap Smz/Tmp Ds [Bactrim Ds] 2 tab PO BID #40 tab Primary Care Physician: Stephanie Noriega DO [STAFF PHYSICIAN] - 5-7 Days Care Physician,No Primary [Primary Care Provider] - Please follow up with your Primary Care Physician in: within 2 weeks Proposed Discharge Date: 06/30/17
[2017-06-30] MEDS: Famotidine 20 MG Tablet PO (08:39)
[2017-06-30] MEDS: Smz/Tmp Ds Tablet 2 TABLET PO (08:39)
--- NOTE | 2017-06-30 09:33 | PCM.DC.SUM ---
Discharge Date and Diagnosis Date of Admission: 06/26/17 Date of Discharge: 06/30/17 - Primary Discharge Diagnosis 1. Acute opiate withdrawal 2. Acute alcohol withdrawal 3. Cellulitis left upper extremity 4. 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 1. Acute opioid withdrawal, acute alcohol withdrawal-patient received medical stabilization per protocol. He is stable at discharge. Denies further withdrawal symptoms. He is being escorted to inpatient substance abuse treatment facility at discharge. 2. Cellulitis left upper extremity-I&D attempted in the emergency room without drainage. No leukocytosis. Afebrile. Continue dressing changes daily with dry sterile dressing. Patient will continue Bactrim at discharge, 1 tab twice daily for 5 doses and Keflex 500 mg twice daily for 10 doses. Incision site with mild erythema. No drainage. No noted abscess. 3. History of hepatitis C-hepatitis panel shows positive hep C antibody, and positive hepatitis A antibody. Hepatitis IgM negative. Continue out patient follow-up. 4. Alcoholic hepatitis-chronic elevated LFTs. Repeat LFTs this admission are slightly decreased. Recommend further outpatient follow-up. 5. Tobacco dependence-encourage smoking cessation. General: Alert, Oriented x3, Cooperative HEENT: Atraumatic, PERRLA, EOMI, Normocephalic Neck: Supple, No JVD, Negative Carotid Bruits Lungs: Clear to auscultation, Normal air movement Cardiovascular: Regular rate, Regular Rhythm, Normal S1, Normal S2, No murmurs Abdomen: Bowel Sounds Present, Soft, Non Tender, Non-Distended Extremities: No clubbing, No cyanosis, No edema, Capillary Refill Less than 3 Seconds Skin: No rashes, No breakdown, - - LUE incision status post I&D Musculoskeletal: No Tenderness to Palpation of Joints or Extremities Neurological: Cranial nerves II-XII grossly intact, Neuro grossly intact Psych/Mental Status: Normal Affect, Appropriate Patient seen and examined at discharge. Patient is being taken directly to inpatient substance abuse treatment facility at discharge. He is stable at time of discharge. This patient was seen by MARA Katz under the supervision of Dr. Darnell. Discharge Diet: No Restrictions Discharge Activity: Return to Normal Activity Call your doctor if your incision/area has: Continuous Slow Oozing, Increased Pain/ Swelling, Increased Redness, Foul Smelling Discharge Home Medications: Medications to take at Discharge Cephalexin [Keflex] 500 mg PO BID #10 cap 06/30/17 Smz/Tmp Ds [Bactrim Ds] 1 tab PO BID #5 tab 06/30/17 Following Prescrptions Were Given to Patient: Cephalexin [Keflex] 500 mg PO BID #10 cap Smz/Tmp Ds [Bactrim Ds] 1 tab PO BID #5 tab Primary Care Physician: Stephanie Noriega DO [STAFF PHYSICIAN] - 5-7 Days Care Physician,No Primary [Primary Care Provider] - Please follow up with your Primary Care Physician in: within 2 weeks Patient Instructions: ED Abscess IandD, ED Narcotic Abuse Disposition: Home Minutes spent on discharge:: 35 Patient Condition:: Stable Medical Necessity - Tobacco Use Smoking Status: Current every day smoker Tobacco Use: Cigarettes Meaningful Use Info Meaningful Use Diagnoses (Choose all that apply): None applicable
== END 2017-06-30 08:48 | disposition home or self-care (01) | DRG 277 ==
LOC: ED 16:49 → MS2 18:06
PROVIDERS: Nurse Practitioner Family; Admitting Provider Family Medicine; Emergency Provider Emergency Medicine; Visit Provider Internal Medicine
DX: L03.114 Cellulitis of left upper limb (principal); F11.23 Opioid dependence with withdrawal; K70.10 Alcoholic hepatitis without ascites; F10.239 Alcohol dependence with withdrawal, unspecified; Y90.9 Presence of alcohol in blood, level not specified; F17.200 Nicotine dependence, unspecified, uncomplicated; Z86.19 Personal history of other infectious and parasitic diseases
CPT/HCPCS: 10060; 36415; 80053; 80076; 80320; 83690; 83735; 84100; 85025; 85610; 86703; 86704; 86705; 86706; 86708; 86709; 86803; 87340; 93005; 97802; 99282; 99406; G0480

== ENCOUNTER 2018-05-07 14:32 | Inpatient (IN) | payer MEDICAID, SELFPAY ==
[2018-05-07 14:43] VITALS: BP 114/77; PULSE 61; RESP 16; TEMP 36.7; O2SAT 98; BMI 20.9; BMI 21.0
--- NOTE | 2018-05-07 14:58 | HP.PCM_ITS ---
Problem List (1) ETOH abuse Status: Chronic (2) Acute opioid withdrawal Status: Acute (3) Alcohol withdrawal Status: Acute Qualifiers: Complication of substance-induced condition: uncomplicated Qualified Code(s): F10.230 - Alcohol dependence with withdrawal, uncomplicated (4) Hep C w/o coma, chronic Status: Chronic (5) Tobacco dependence Status: Chronic History of Present Illness Date of Admission: 05/07/18 Chief Complaint: Acute opiate and alcohol withdrawal - 1 day The patient is a 37 year old M with past medical history of chronic hepatitis C, not on treatment, polysubstance dependence-heroin, alcohol, nicotine, cocaine who comes in with complaints of nausea, abdominal cramps, hot and cold flashes, feeling of unwell for medical stabilization under the [facility] protocol. Patient admits to last using about a quarter to half grams of heroine before admission, drank about 6 pack of beer a few days prior to admission, last used cocaine 2 days before admission. He also smokes cigarettes about 1 pack/day. He denied any fever or chills or rash or abscesses or dizziness or chest pain or palpitations. Past Medical History Past Medical History (Chronic Problems): Chronic Problems ETOH abuse (Chronic) Hep C w/o coma, chronic (Chronic) Tobacco dependence (Chronic) Heroin dependence (Chronic) Allergies No Known Allergies Allergy (Verified 06/26/17 15:54) Home Medications: Ambulatory Orders Medication Instructions Recorded Cephalexin [Keflex] 500 mg PO BID #10 cap 06/30/17 Smz/Tmp Ds [Bactrim Ds] 1 tab PO BID #5 tab 06/30/17 Surgical History: no surgical history Psychiatric History: No pertinent psych hx Smoking Status: Current every day smoker Tobacco Use: Cigarettes Alcohol: Heavy Drugs: Cocaine, Heroin - *Family History Maternal History Items: No pertinent history Paternal History Items: No pertinent history Review of Systems Constitutional: Denies: Anorexia, Chills, Fever, Weakness, Weight Change, Fatigue Eyes: Denies: Pain, Redness, Vision Change HEENT: Denies: Head Aches, Hearing Changes, Sinus Congestion, Sinus Drainage, Sore Throat Cardiovascular: Denies: Chest Pain, Claudication, Orthopnea, Palpitations Respiratory: Denies: Cough, Shortness of breath at rest, Shortness of breath upon exertion, Sputum production Gastrointestinal: Denies: Abdominal Pain, Hematemesis, Hematochezia, Nausea, Vomiting Genitourinary: Denies: Dysuria, Incontinence Musculoskeletal: Denies: Joint Pain, Joint stiffness, Joint Tenderness Skin: Denies: Rash, Wounds Neurological: Denies: Difficulty swallowing, Focal weakness, Numbness, Tingling Psychiatric: Denies: Anxiety, Depression, Homicidal Ideations, Suicidal Ideations Hematologic/ Lymphatic: Denies: Easy Bruising, Easy Bleeding VTE Information - Inpt Only VTE Present on Admission: No VTE Pharm Prophylaxis ordered?: Yes Patient Problems: Active and Suspected Problems Alcohol withdrawal (Acute) Alcohol withdrawal (Acute) - Physical Exam General: Alert, Oriented x3, Cooperative HEENT: Atraumatic, PERRLA, EOMI, Normocephalic Neck: Supple, No JVD, Negative Carotid Bruits Lungs: Clear to auscultation, Normal air movement Cardiovascular: Regular rate, No murmurs Abdomen: Bowel Sounds Present, Soft, Non Tender Extremities: No edema, Capillary Refill Less than 3 Seconds Skin: No rashes, No breakdown Musculoskeletal: No Tenderness to Palpation of Joints or Extremities Neurological: Cranial nerves II-XII grossly intact Psych/Mental Status: Normal Affect, Appropriate Weight: 70.307 kg Body Mass Index (BMI) 20.9 Assessment/Plan All Active Problems Cellulitis of left upper extremity (Acute) Alcohol withdrawal (Acute) Alcohol withdrawal (Acute) Acute opioid withdrawal (Acute) 37 year old M with past medical history of chronic hepatitis C, not on treatment, polysubstance dependence-heroin, alcohol, nicotine, cocaine who comes in with complaints of nausea, abdominal cramps, hot and cold flashes, feeling of unwell for medical realization under the [employer] protocol. 1. Acute opiate, alcohol withdrawal, in a known polysubstance dependent, CIWA score 14, Cina score 16 Plan: Admit to Medsurg floor under the [facility] program, continue per protocol, continue to monitor vitals closely 2. Polysubstance dependence, advised to quit 3. Nicotine dependence, on replacement with patch and gum 4. Chronic hepatitis C, marginal elevation of AST, ALT, advised to follow-up in the outpatient 5. DVT Prophylaxis with early ambulation Code Visit Inpatient E&M: 06038 Init Hosp L2
[2018-05-07 15:50] LABS: Absolute Lymphocyte Count 2.15 X10^3/ul (0.83-4.51); Absolute Neutrophil Count 4.7 X10^3/uL (2.0-7.7); Basophil# 0.03 X10^3/uL; Basophil% 0.4 % (0-1); Eosinophil# 0.05 X10^3/uL; Eosinophils% 0.7 % (0-5); Hematocrit 43.3 % (40-54); Hemoglobin 14.2 g/dl (13.0-16.5); Lymphocyte # 2.15 X10^3/ul (4.0); Lymphocyte % 29.3 % (19-41); Mean Corp Hgb Conc 32.8 g/gl (32-36); Mean Corpuscular Hgb 30.3 pg (27.0-32.0); Mean Corpuscular Volume 92.5 fL (80-94); Mean Platelet Vol. 11.3 fl (6.2-12.0); Monocyte# 0.43 X10^3/uL; Monocyte% 5.9 % (0-10); Neutrophil # 4.67 X10^3/uL (2.7-7.7); Neutrophil % 63.6 % (47-70); Platelet Count 206 K/mm3 (150-450); RBC Distribution Width CV 12.8 % (11.6-14.6); RBC Distribution Width SD 42.3 fl (35.1-43.9); Red Blood Count 4.68 M/mm3 (4.6-6.2); White Blood Count 7.3 K/mm3 (4.4-11.0)
[2018-05-07 15:52] LABS: POSITIVE COUNT NO; POSITIVE DIFFERENTIAL NO; POSITIVE MORPHOLOGY NO
[2018-05-07] MEDS: Buprenorphine HCl 2 MG TAB.SUBL SL ×2 (16:05→22:35)
[2018-05-07] MEDS: chlordiazePOXIDE 25 MG Capsule PO ×2 (16:05→21:50)
[2018-05-07] MEDS: cloNIDine HCl 0.1 MG Tablet PO ×2 (16:11→21:54)
[2018-05-07] MEDS: Dicyclomine 10 MG Capsule 20 MG PO (16:11)
[2018-05-07] MEDS: Pramipexole Di-HCl 0.25 MG Tablet PO (16:11)
[2018-05-07] MEDS: Methocarbamol 750 MG Tablet PO (16:11)
[2018-05-07] MEDS: Ondansetron ODT 4 MG Tablet PO (16:11)
[2018-05-07 16:12] LABS: AST(SGOT) 39 U/L (15-37); Alanine Aminotransfer ALT/SGPT 94 U/L (16-61); Albumin, Serum 4.1 g/dL (3.2-5.0); Alkaline Phosphatase 92 U/L (45-117); Anion Gap 5 (5-15); BUN 7 mg/dL (7-18); BUN/Creat Ratio 8.6 RATIO (10-20); Chloride 105 mmol/L (98-107); Creatinine, Serum 0.82 mg/dL (0.70-1.30); EST Glomerular Filtration Rate 112 mL/min (>60); Est Glom Filt Rate - Afr Amer 135 mL/min (>60); Estimated Creatinine Clearance 121.47 ml/min; Globulin 4.2 g/dL (2.2-4.2); Glucose 85 mg/dL (74-106); Protein, Total 8.3 g/dL (6.4-8.2); Sodium Level 138 mmol/L (136-145)
[2018-05-07 18:00] VITALS: BP 90/51; PULSE 55; RESP 16; TEMP 36.8; O2SAT 98
[2018-05-07] MEDS: hydrOXYzine PAM 25 MG Capsule 50 MG PO (19:40)
[2018-05-07 21:30] VITALS: BP 100/65; PULSE 69; RESP 16; TEMP 36.6; O2SAT 99
[2018-05-07] MEDS: traZODone 50 MG Tablet PO (21:51)
[2018-05-07] MEDS: Famotidine 20 MG Tablet PO (21:51)
[2018-05-08 02:00] VITALS: BP 98/70; PULSE 55; RESP 16; TEMP 36.4; O2SAT 100
[2018-05-08] MEDS: hydrOXYzine PAM 25 MG Capsule 50 MG PO (03:00)
[2018-05-08] MEDS: Methocarbamol 750 MG Tablet PO ×4 (03:01→22:34)
[2018-05-08] MEDS: chlordiazePOXIDE 25 MG Capsule PO ×3 (03:01→17:39)
[2018-05-08] MEDS: Ibuprofen 600 MG Tablet PO (03:01)
[2018-05-08 06:00] VITALS: BP 108/61; PULSE 83; RESP 16; TEMP 36.3; O2SAT 96
[2018-05-08] MEDS: Pramipexole Di-HCl 0.25 MG Tablet PO ×2 (06:16→22:50)
[2018-05-08] MEDS: Buprenorphine HCl 2 MG TAB.SUBL SL ×3 (06:16→22:34)
[2018-05-08 08:03] LABS: Amphetamine Urine VISTA NEGATIVE (<1000 ng/mL); Barbiturate Urine VISTA NEGATIVE (< 200 ng/mL); Benzodiazepine Urine VISTA POSITIVE (< 200 ng/mL); Cocaine Urine VISTA POSITIVE (< 300 ng/mL); Ecstacy Urine VISTA NEGATIVE (< 500 ng/mL); Methadone Urine VISTA NEGATIVE (< 300 ng/mL); PCP Urine VISTA NEGATIVE (< 25 ng/mL); THC Urine VISTA POSITIVE (< 50 ng/mL); Vista UDS pH Range 6
--- NOTE | 2018-05-08 09:00 | PCM.PROGNOTE ---
Patient Problems: Active and Suspected Problems Alcohol withdrawal (Acute) Subjective: Chief complaint: Follow-up after admission for acute opioid and alcohol withdrawal. Patient seen and examined. No acute events overnight. He is still symptomatic, complaining of abdominal cramps and nausea. Could not sleep last night. He reported almost no improvement compared to the admission. His vital signs are stable. - Physical Exam General: Alert, Oriented x3, Cooperative, No apparent distress HEENT: Atraumatic, PERRLA, EOMI, Normocephalic Oral: Moist Mucosa, No Gingival or Mucosal Lesions/ Ulcerations Neck: Supple, No JVD, Negative Carotid Bruits, Trachea Midline, Thyroid Normal Size and Texture Lungs: Clear to auscultation, Normal air movement, No rhonchi, No wheeze, No rales Cardiovascular: Regular rate, Regular Rhythm, Normal S1, Normal S2, No murmurs Abdomen: Bowel Sounds Present, Soft, Non Tender, Non-Distended, No Hepato-splenomegaly Extremities: No clubbing, No cyanosis, No edema Skin: No rashes, No breakdown Lymphatic: No Cervical, Supraclavicular, or Inguinal Adenopathy Neurological: Cranial nerves II-XII grossly intact, Motor Exam 5/5 strength throughout Psych/Mental Status: Normal Affect, Appropriate, Alert and oriented to time, place, person, mood and affect Vital Signs Temp Pulse Resp BP Pulse Ox 97.3 F L 83 16 108/61 96 05/08/18 06:00 05/08/18 06:00 05/08/18 06:00 05/08/18 06:00 05/08/18 06:00 Oxygen Delivery Method Room Air Weight: 155 lb Body Mass Index (BMI) 20.9 Intake and Output for Last 24 Hours 05/06/18 05/07/18 05/08/18 23:59 23:59 23:59 Intake Total 600 / 600 Balance 600 / 600 Laboratory Tests Past 24 Hrs 05/07/18 05/07/18 05/08/18 15:19 15:19 06:20 WBC 7.3 RBC 4.68 Hgb 14.2 Hct 43.3 MCV 92.5 MCH 30.3 MCHC 32.8 RDW 12.8 RDW Differential 42.3 Plt Count 206 MPV 11.3 Immature Gran % (Auto) 0.100 Neut % (Auto) 63.6 Lymph % (Auto) 29.3 [place] % (Auto) 5.9 Eos % (Auto) 0.7 Baso % (Auto) 0.4 Absolute Neuts (auto) 4.7 Absolute Lymphs (auto) 2.15 Total Counted Not Reportable Sodium 138 Potassium 4.0 Chloride 105 Carbon Dioxide 28.0 Anion Gap 5 BUN 7 Creatinine 0.82 Estim Creat Clear Calc 121.47 Est GFR (MDRD) Af Amer 135 Est GFR (MDRD) Non-Af 112 BUN/Creatinine Ratio 8.6 L Glucose 85 Calcium 9.0 Total Bilirubin 0.60 AST 39 H ALT 94 H Alkaline Phosphatase 92 Total Protein 8.3 H Albumin 4.1 Globulin 4.2 Albumin/Globulin Ratio 1.0 Urine Opiates Screen POSITIVE H Urine Methadone Screen NEGATIVE Ur Barbiturates Screen NEGATIVE Ur Phencyclidine Scrn NEGATIVE Ur Amphetamines Screen NEGATIVE U Methamphetamin-MDMA NEGATIVE U Benzodiazepines Scrn POSITIVE H Urine Cocaine Screen POSITIVE H U Cannabinoids Screen POSITIVE H Ur Drug Screen Comment Medical Necessity - Tobacco Use Smoking Status: Current every day smoker Tobacco Use: Cigarettes Assessment/Plan All Active Problems Alcohol withdrawal (Acute) Acute opioid withdrawal (Acute) This is a 37 years old male patient presented through [facility] office for acute opioid withdrawal and acute alcohol withdrawal for medical stabilization. #1 acute opiate withdrawal/acute alcohol withdrawal: Patient started on tapering course of Subutex and Librium, as needed Bentyl, Vistaril, methocarbamol, Zofran, Mirapex and trazodone. Also, he is on folic acid and thiamine supplement as well as multivitamins. He reported no improvement of her symptoms. Routine blood work was unremarkable. LFT revealed minimally elevated liver transaminases. Urine drug screen was positive for opioids, benzodiazepines, cocaine and cannabinoids. Plan: Ambien nightly as needed, continue same treatment. #2 polysubstance abuse: Patient has been using different drugs includin IV heroin, benzodiazepines and marijuana. Urine drug screen was positive for opioids, benzos abuse, cocaine and cannabinoids. Plan as above. #3 chronic hepatitis C: Never been treated for it. LFT revealed mildly elevated liver transaminases. Recommended follow-up with infectious disease as outpatient. #4 tobacco abuse: Continue nicotine patch. #5 DVT prophylaxis: Low-risk patient, no prophylaxis indicated. This note was generated with [employer] software. It may contain incorrect words, spelling, and punctuation that were not noted in checking the note before signing. Code Visit Inpatient E&M: 18518 Subs Hosp L2
[2018-05-08] MEDS: Thiamine Hydrochloride 100 MG Tablet PO (09:02)
[2018-05-08] MEDS: Multivitamins,Therapeutic Tablet 1 TABLET PO (09:02)
[2018-05-08] MEDS: Folic Acid 1 MG Tablet PO (09:02)
[2018-05-08] MEDS: Famotidine 20 MG Tablet PO ×2 (09:03→22:34)
[2018-05-08] MEDS: Dicyclomine 10 MG Capsule 20 MG PO (09:15)
--- NOTE | 2018-05-08 09:21 | NEWVISION ---
Patient requested to be set up with [facility] in [place]. Patient will attend a walk in clinic they offer Friday- during the hours of 7:00am-9:30am. Patient has transportation arranged for discharge.
[2018-05-08 10:00] VITALS: BP 93/49; PULSE 53; RESP 16; TEMP 36.5; O2SAT 98
[2018-05-08 15:45] VITALS: BP 97/58; PULSE 49; RESP 16; TEMP 36.6; O2SAT 99
[2018-05-08 19:43] VITALS: BP 101/63; PULSE 45; RESP 16; TEMP 36.5; O2SAT 100
[2018-05-08] MEDS: traZODone 50 MG Tablet PO (22:34)
[2018-05-09] VITALS (8 sets, daily range): BP systolic 94–107; BP diastolic 55–70; PULSE 44–54; RESP 14–18; TEMP 36.4–37.1; O2SAT 99–100
[2018-05-09] MEDS: chlordiazePOXIDE 25 MG Capsule PO ×3 (02:18→16:28)
[2018-05-09] MEDS: Buprenorphine HCl 2 MG TAB.SUBL SL ×2 (06:33→18:35)
--- NOTE | 2018-05-09 08:19 | PCM.PROGNOTE ---
Patient Problems: Active and Suspected Problems Alcohol withdrawal (Acute) Subjective: Chief complaint: Follow-up after admission for acute opioid and alcohol withdrawal. Patient seen and examined. No acute events overnight. He is feeling better, no more nausea or diarrhea. He was able to sleep last night after he received Ambien. He is bradycardic but asymptomatic. Likely because of Catapres. Other vital signs are stable. - Physical Exam General: Alert, Oriented x3, Cooperative, No apparent distress HEENT: Atraumatic, PERRLA, EOMI, Normocephalic Oral: Moist Mucosa, No Gingival or Mucosal Lesions/ Ulcerations Neck: Supple, No JVD, Negative Carotid Bruits, Trachea Midline, Thyroid Normal Size and Texture Lungs: Clear to auscultation, Normal air movement, No rhonchi, No wheeze, No rales, Diminished Cardiovascular: Regular rate, Regular Rhythm, Normal S1, Normal S2, No murmurs Abdomen: Bowel Sounds Present, Soft, Non Tender, Non-Distended, No Hepato-splenomegaly Extremities: No clubbing, No cyanosis, No edema Skin: No rashes, No breakdown Lymphatic: No Cervical, Supraclavicular, or Inguinal Adenopathy Neurological: Cranial nerves II-XII grossly intact, Neuro grossly intact Psych/Mental Status: Normal Affect, Appropriate, Alert and oriented to time, place, person, mood and affect Vital Signs Temp Pulse Resp BP Pulse Ox 97.5 F L 45 L 16 107/63 100 05/09/18 02:21 05/09/18 02:21 05/09/18 02:21 05/09/18 02:21 05/09/18 02:21 Oxygen Delivery Method Room Air Weight: 155 lb Body Mass Index (BMI) 20.9 Intake and Output for Last 24 Hours 05/07/18 05/08/18 05/09/18 23:59 23:59 23:59 Intake Total 600 / 600 Balance 600 / 600 Medical Necessity - Tobacco Use Smoking Status: Current every day smoker Tobacco Use: Cigarettes Assessment/Plan All Active Problems Alcohol withdrawal (Acute) Acute opioid withdrawal (Acute) This is a 37 years old male patient presented through [facility] office for acute opioid withdrawal and acute alcohol withdrawal for medical stabilization. #1 acute opiate withdrawal/acute alcohol withdrawal: Patient started to see improvement, having no more nausea or abdominal cramps. He is on tapering course of Subutex and Librium, as needed Bentyl, Vistaril, methocarbamol, Zofran, Mirapex and trazodone. Also, he is on folic acid and thiamine supplement as well as multivitamins. Plan to continue same treatment. #2 polysubstance abuse: Patient has been using different drugs includin IV heroin, benzodiazepines and marijuana. Urine drug screen was positive for opioids, benzos abuse, cocaine and cannabinoids. Plan as above. #3 chronic hepatitis C: Never been treated for it. LFT revealed mildly elevated liver transaminases. Recommended follow-up with infectious disease as outpatient. #4 tobacco abuse: Continue nicotine patch. #5 DVT prophylaxis: Low-risk patient, no prophylaxis indicated. This note was generated with [employer] dictation software. It may contain incorrect words, spelling, and punctuation that were not noted in checking the note before signing. Code Visit Inpatient E&M: 07236 Subs Hosp L2
[2018-05-09] MEDS: Multivitamins,Therapeutic Tablet 1 TABLET PO (08:37)
[2018-05-09] MEDS: Thiamine Hydrochloride 100 MG Tablet PO (08:37)
[2018-05-09] MEDS: Folic Acid 1 MG Tablet PO (08:37)
[2018-05-09] MEDS: Famotidine 20 MG Tablet PO ×2 (08:38→21:51)
--- NOTE | 2018-05-09 09:42 | NURSING ---
PT RESTING QUIETLY IN BED, EYES CLOSED, RESP EASY
[2018-05-09] MEDS: hydrOXYzine PAM 25 MG Capsule 50 MG PO (12:37)
[2018-05-09] MEDS: Pramipexole Di-HCl 0.25 MG Tablet PO (12:37)
[2018-05-09] MEDS: Ibuprofen 600 MG Tablet PO (16:28)
[2018-05-09] MEDS: Methocarbamol 750 MG Tablet PO (16:28)
[2018-05-09] MEDS: traZODone 50 MG Tablet PO (21:51)
[2018-05-09] MEDS: Zolpidem Tartrate 5 MG Tablet PO (21:51)
[2018-05-10] MEDS: chlordiazePOXIDE 25 MG Capsule PO (05:08)
[2018-05-10 06:30] VITALS: BP 97/66; PULSE 44; RESP 14; TEMP 36.3; O2SAT 98
[2018-05-10] MEDS: Buprenorphine HCl 2 MG TAB.SUBL SL (06:30)
[2018-05-10 06:34] VITALS: BP 97/66; PULSE 44; RESP 14; TEMP 36.3
[2018-05-10 08:10] VITALS: BP 98/61; PULSE 49; RESP 18; TEMP 36.9; O2SAT 100
[2018-05-10] MEDS: Famotidine 20 MG Tablet PO (08:15)
[2018-05-10] MEDS: Multivitamins,Therapeutic Tablet 1 TABLET PO (08:15)
[2018-05-10] MEDS: Thiamine Hydrochloride 100 MG Tablet PO (08:15)
[2018-05-10] MEDS: Folic Acid 1 MG Tablet PO (08:15)
--- NOTE | 2018-05-10 08:56 | DCINST_ITS ---
- Discharge Diagnoses Current Active Problems: Current Active and Chronic Problems Alcohol withdrawal (Acute) You will use the following diet at home:: Regular Your food should be the consistency of: Regular Discharge Activity: Return to Normal Activity Weight Bearing Status: Full weight bearing Call your doctor if you observe: Fever of 101 or Higher, Shortness of breath, Dizziness, Fainting spells, Increased palpitations (irregular heartbeat), Uncontrolled pain Allergies/Adverse Reactions: Allergies No Known Allergies Allergy (Verified 06/26/17 15:54) Medications to take at Discharge Folic Acid 1 mg PO DAILYCM #30 tablet 05/10/18 Thiamine Hydrochloride [Vitamin B1] 100 mg PO DAILYCM #30 tablet 05/10/18 The following prescriptions were given: Folic Acid 1 mg PO DAILYCM #30 tablet Thiamine Hydrochloride [Vitamin B1] 100 mg PO DAILYCM #30 tablet Primary Care Physician: Care Physician,No Primary [Primary Care Provider] - Please follow up with your Primary Care Physician in: 4-6 weeks. Test Results: Test results from this visit will be discussed in further detail at your follow- up appointment, if applicable.
[2018-05-10 10:00] VITALS: BP 98/61; PULSE 49; RESP 18; TEMP 36.9; O2SAT 100
--- NOTE | 2018-05-10 11:41 | DS.PCM_ITS ---
Discharge Date and Diagnosis Date of Admission: 05/07/18 Date of Discharge: 05/10/18 - Primary Discharge Diagnosis Active and Suspected Problems #1 acute alcohol withdrawal. #2 acute opioid withdrawal. - Secondary Discharge Diagnosis Chronic Problems ETOH abuse (Chronic) Hep C w/o coma, chronic (Chronic) Tobacco dependence (Chronic) Heroin dependence (Chronic) Hospital Course and Treatment Operations: None Procedures: None Summary of Care Provided: Patient seen and examined on the day of discharge and appeared to be stable to be discharged home. He denied any significant complaints, slept well last night. His vital signs are stable. The patient is a 37 year old M sent to the [facility] office requesting admission for acute opioid and alcohol withdrawal for medical stabilization. Patient has been using different substances including cocaine, alcohol and heroin and he presented with symptoms of nausea, vomiting, abdominal cramps, hot and cold flashes, tremors and restlessness. A request admission for medical stabilization. His routine blood work was unremarkable. Liver transaminases were slightly elevated because of chronic drinking. Urine drug screen was positive for opioids, benzodiazepines, cocaine and cannabinoids. Patient was admitted, started on tapering course of Subutex and Librium as well as as needed Bentyl, Vistaril, methocarbamol, Zofran, Mirapex and trazodone. With treatment, patient symptoms improved, sleeping improved and he did very well. Patient discharged home in a stable medical condition, started on folic acid and thiamine supplement, plan to follow-up with [facility] for further instructions, recommended follow-up with PCP in 4-6 weeks. - Physical Exam General: Alert, Oriented x3, Cooperative, No apparent distress HEENT: Atraumatic, PERRLA, EOMI, Normocephalic Oral: Moist Mucosa, No Gingival or Mucosal Lesions/ Ulcerations Neck: Supple, No JVD, Negative Carotid Bruits, Trachea Midline, Thyroid Normal Size and Texture Lungs: Clear to auscultation, No rhonchi, No wheeze, No rales, Diminished Cardiovascular: Regular rate, Regular Rhythm, Normal S1, Normal S2, PMI Normal Abdomen: Bowel Sounds Present, Soft, Non Tender, Non-Distended, No Hepato- splenomegaly Extremities: No clubbing, No cyanosis, No edema Skin: No rashes, No breakdown Lymphatic: No Cervical, Supraclavicular, or Inguinal Adenopathy Neurological: Cranial nerves II-XII grossly intact, Neuro grossly intact Psych/Mental Status: Normal Affect, Appropriate Vital Signs Temp Pulse Resp BP Pulse Ox 98.4 F 49 L 18 98/61 100 05/10/18 10:00 05/10/18 10:00 05/10/18 10:00 05/10/18 10:00 05/10/18 10:00 Oxygen Delivery Method Room Air Weight: 155 lb Body Mass Index (BMI) 20.9 Intake and Output for Last 24 Hours 05/08/18 05/09/18 05/10/18 23:59 23:59 23:59 Intake Total 600 / 600 920 / 920 700 / 700 Balance 600 / 600 920 / 920 700 / 700 Discharge Activity: Return to Normal Activity Weight Bearing Status: Full weight bearing Call your doctor if you observe: Fever of 101 or Higher, Shortness of breath, Dizziness, Fainting spells, Increased palpitations (irregular heartbeat), Uncontrolled pain Home Medications: Medications to take at Discharge Folic Acid 1 mg PO DAILYCM #30 tablet 05/10/18 Thiamine Hydrochloride [Vitamin B1] 100 mg PO DAILYCM #30 tablet 05/10/18 Following Prescrptions Were Given to Patient: Folic Acid 1 mg PO DAILYCM #30 tablet Thiamine Hydrochloride [Vitamin B1] 100 mg PO DAILYCM #30 tablet Primary Care Physician: Care Physician,No Primary [Primary Care Provider] - Please follow up with your Primary Care Physician in: 4-6 weeks. Disposition: Home Minutes spent on discharge:: 25 Patient Condition:: Stable Medical Necessity - Tobacco Use Smoking Status: Current every day smoker Tobacco Use: Cigarettes Meaningful Use Info Meaningful Use Diagnoses (Choose all that apply): None applicable Code Visit Inpatient E&M: 50331 Disch Hosp
== END 2018-05-10 10:00 | disposition home or self-care (01) | DRG 773 ==
PROVIDERS: Admitting Provider Internal Medicine; Referring Provider Internal Medicine; Visit Provider Hospitalist
DX: F11.23 Opioid dependence with withdrawal (principal); F10.239 Alcohol dependence with withdrawal, unspecified; B18.2 Chronic viral hepatitis C; F17.210 Nicotine dependence, cigarettes, uncomplicated
CPT/HCPCS: 36415; 80053; 80307; 85025; 99406